=== PATIENT | female | born 1990 | race Caucasian/White ===

== ENCOUNTER 2025-01-07 14:10 | Outpatient (REF) | payer OTHER, SELFPAY ==
--- OUTSIDE RECORDS SUMMARY | 2025-01-07 13:30 | XMS_ITS | Encounter Summary ---
Author Organization [employer] Address [address] [place] [address] [address] [address] Care Team Providers Care Personal Property Assessor Name Role Phone Unavailable Primary Care Provider Unavailabl e Reason for Referral * Imaging (Routine) - Pending Review Specialty Diagnoses / Procedures Referred By Contac t Referred To Contact Radiology Diagnoses Chronic bilateral low back pain with right-sided sciatica Procedures MR Lumbar Spine w/o Contrast Kaye Howard NP [address] [place] [address] Phone: tel: fax: Referral ID Status Reason Start Date Expiration Date V isits Requested Visits Authorized [id number] Pending Review 01/07/2025 01/07/2026 1 1 * Medications - Closed Specialty Diagnoses / Procedures Referred By Jonnieac t Referred To Contact Diagnoses Chronic bilateral low back pain with right-sided sciatica Kaye Howard NP [address] [place] [address] Phone: tel: fax: Referral ID Status Reason Start Date Expiration Date Visits Re quested Visits Authorized [id number] Closed 1 1 Encounter Details Date Type Department Care Team (Late st Contact Info) Description 01/07/2025 1:30 PM EST Office Visit [facility] MEDICINE [address] [place] [address] Kaye Howard NP [address] [place] [address] Healthcare maintenance (Primary Dx); Chronic bilateral low back pain with right-sided sciatica; Epidermoid cyst; Dietary counseling; Exercise counseling Social History Tobacco Use Types Packs/Day Years Used Date Smoking Tobacco: Never Passive Smoke Exposure: Never Smokeless Tobacco: Never Tobacco Cessation:Counseling Given: Not Answered Depression Answer Date Recorded Patient Health Questionnaire-9 Score 0 01/07/2025 Patient Health Questionnaire-9 Score 0 01/07/2025 Last PHQ-9: Questionnaire Data Not on file 1 03/09/2024 Depression Answer Date Recorded Patient Health Questionnaire-2 Score 0 01/07/2025 Comments Unknown Sex and Gender Information Value Date Recorded Sex Assigned at Female 12/30/2024 12:04 PM EST Legal Sex Female 9:28 AM EDT Gender Identity Female 12/30/2024 12:04 PM EST Sexual Orientation Straight 12/30/2024 12 :04 PM EST documented as of this encounter Last Filed Vital Signs Vital Sign Reading Time Taken Comments Blood Pressure 122/80 01/07/2025 1:19 PM EST Pulse 78 01/07/2025 1:19 PM EST Temperature 36.6 C (97.8 F) 01/07/2025 1:19 PM EST Respiratory Rate 16 01/07/2025 1:19 PM EST Oxygen Saturation 99% 01/07/2025 1:19 PM EST Inhaled Oxygen Concentration - - Weight 68.5 kg (151 lb) 01/07/2025 1:19 PM EST Height 165.4 cm (5' 5.11 ) 01/07/2025 1:19 PM ES T Body Mass Index 25.04 01/07/2025 1:19 PM EST documented in this encounter Functional Status * Over the past 2 weeks, how often have you been bothered by any of the following problems? Question Answer Date of Assessment Author Patient Health Questionnaire -2 Score 0 01/07/2025 2:04 PM EST Tasha Myrick MA * Little interest or pleasure in doing things Answer Date of Assessment Author Not at all 01/07/2025 2:04 PM EST Tasha Chacon MA * Feeling down, depressed, or hopeless Answer Date of Assessment Author Not at all 01/07/2025 2:04 PM EST Tasha Chacon MA * Trouble falling or staying asleep, or sleeping too much Answer Date of Assessment Author Not at all 01/07/2025 2:04 PM Tasha Alcala MA * Feeling tired or having little energy Answer Date of Assessment Author Not at all 01/07/2025 2:04 PM Tasha Alcala MA * Poor appetite or overeating Answer Date of Assessment Author Not at all 01/07/2025 2:04 PM Tasha Alcala MA * Feeling bad about yourself - or that you are a failure or have let yourself or your family down Answer Date of Assessment Author Not at all 01/07/2025 2:04 PM Tasha Alcala MA * Trouble concentrating on things, such as reading the newspaper or watching television Answer Date of Assessment Author Not at all 01/07/2025 2:04 PM Tasha Alcala MA * Moving or speaking so slowly that other people could have noticed? Or the opposite - being so fidgety or restless that you have been moving around a lot more than usual. Answer Date of Assessment Author Not at all 01/07/2025 2:04 PM Tasha Alcala MA * Thoughts that you would be better off or hurting yourself in some way Answer Date of Assessment Author Not at all 01/07/2025 2:04 PM Tasha Alcala MA * Patient Health Questionnaire-9 Score Answer Date of Assessment Author 0 01/07/2025 2:04 PM Tasha Alcala MA * Over the last 2 weeks, how often have you been bothered by any of the following problems? Question Answer Date of Assessment Author Feeling nervous, anxious, or on edge 0 01/07/2025 2:04 PM Tasha Nunes MA Not being able to stop or control worrying 0 01/07/2025 2:04 PM Tasha Nunes MA Worrying too much about different things 0 01/07/2025 2:04 PM Tasha Nunes MA Trouble relaxing 0 01/07/2025 2:04 PM EST Elier sharma Tasha Bullock MA Being so restless that it is hard to sit still 0 01/07/2025 2:04 PM EST Tasha Myrick MA Becoming easily annoyed or irritable 0 01/07/2025 2:04 PM EST Tasha Myrick MA Feeling afraid as if somethi ng awful might happen 0 01/07/2025 2:04 PM EST Tasha Myrick MA ZAKIA-7 Total Score 0 01/07/2025 2:04 PM EST Tasha Myrick MA documented as of this encounter Miscellaneous Notes * Assessment & Plan Note - Kaye Howard NP - 01/07/2025 1:30 PM ESTAssociated Problem(s): Epidermoid cyst Epidermoid cyst on the neck, not concerning for malignancy. No indication for intervention unless pain, infection, or significant discomfort develops. No imaging or biopsy recommended at this time. Monitor for changes in pain or signs of infection. Surgical excision only if symptomatic. * Assessment & Plan Note - Kaye Howard NP - 01/07/2025 1:30 PM ESTAssociated Problem(s): Chronic bilateral low back pain with right-sided sciatica - Chronic low back pain with intermittent exacerbations since February 2023 -Did not resolve with physical therapy -Previously prescribed flexeril, now managed with Naproxen -Pain is characterized by exacerbations severe enough to require bed rest. -X-rays performed in March 2023 Mild dextra curvature at the thoracolumbar junction. There is no evidence of fracture. There is preservation of disc space height at each lumbar level. No sacral or sacroiliac abnormality is seen. No osseous lesions are identified and no soft tissue abnormality is detected. No spondylolyses or spondylolisthesis. Orders: lidocaine (Lidoderm) 5 % patch; Apply 1 patch topically Once per day. Remove & discard patch within 12 hours or as directed by . MR Lumbar Spine w/o Contrast; Future documented in this encounter Plan of Treatment Scheduled Orders Name Type Priority Associated Diagnoses Orde r Schedule CBC auto differential Lab Routine Healthcare maintenance Expected: 01/07/2025 (Approximate), Expires: 01/07/2026 Comprehensive Metabolic Panel Lab Routine Healthcare maintenance Expected: 01/07/2025 (Approximate), Expires: 01/07/2026 Renal Function Panel Lab Routine Healthcare maintenance Expected: 01/07/2025 (Approximate), Expires: 01/07/2026 MR Lumbar Spine w/o Contrast Imaging Routine Chronic bilateral low back pain with right-sided sciatica Expected: 01/07/2025, Expires: 01/07/2026 documented as of this encounter Visit Diagnoses Diagnosis Healthcare maintenance- Primary Chronic bilateral low back pain with right-sided sciatica Epidermoid cyst Sebaceous cyst Dietary counseling Dietary surveillance and counseling Exercise counseling documented in this encounter Additional Health Concerns Assessment Noted Time PHQ-9 Depression Total Score: 0 01/08/20 25 2:04 PM EST documented as of this encounter
--- OUTSIDE RECORDS SUMMARY | 2025-01-07 14:35 | XMS_ITS | Encounter Summary ---
Author Organization [employer] Address [address] [place] [address] [address] [place] [address] Care Team Providers Care Ditching Machine Operator Name Role Phone Unavailable Primary Care Provider Unavailabl e Encounter Details Date Type Department Care Team (Latest Contact Info) Description 01/07/2025 Travel Social History Tobacco Use Types Packs/Day Years Used Date Smoking Tobacco: Never Passive Smoke Exposure: Never Smokeless Tobacco: Never Depression Answer Date Recorded Patient Health Questionnaire-9 [...] PM EST documented as of this encounter Functional Status * Over the past 2 weeks, how often have you been bothered by any of the following problems? Question Answer Date of Assessment Author Patient Health Questionnaire -2 Score 0 01/07/2025 2:04 PM Tasha Nunes MA * Little interest or pleasure in doing things Answer Date of Assessment Author Not at all 01/07/2025 2:04 PM Tasha Alcala MA * Feeling down, depressed, or hopeless Answer Date of Assessment Author Not at all 01/07/2025 2:04 PM Tasha Alcala MA * Trouble falling or staying asleep, [...] MA Trouble relaxing 0 01/07/2025 2:04 PM Tasha Zapata MA Being so restless that it is hard to sit still 0 01/07/2025 2:04 PM Tasha Nunes MA Becoming easily annoyed or irritable 0 01/07/2025 2:04 PM Tasha Nunes MA Feeling afraid as if somethi ng awful might happen 0 01/07/2025 2:04 PM Tasha Nunes MA ZAKIA-7 Total Score 0 01/07/2025 2:04 PM Tasha Nunes MA documented as of this encounter Plan of Treatment Not on file documented as of this encounter Visit Diagnoses Not on filedocumented in this encounter Additional Health Concerns Assessment Noted Time PHQ-9 Depression Total Score: 0 01/08/20 25 2:04 PM EST documented as of this encounter
--- OUTSIDE RECORDS SUMMARY | 2025-01-07 14:35 | XMS_ITS | Clinical Summary ---
Author Organization [employer] Address [address] [facility] [address] [place] [address] Care Team Providers Care Cashier Credit Name Role Phone Unavailable Primary Care Provider Unavailabl e Allergies No known active allergies Medications naproxen (Naprosyn) 500 MG tablet Take 500 mg by mouth with breakfast and with evening meal. 4 Active lidocaine (Lidoderm) 5 % patchIndication s:Chronic bilateral low back pain with right-sided sciatica Apply 1 patch topically Once per day. Remove & discard patch within 12 hours or as directed by . 30 patch 2 5 Active Active Problems Problem Noted Date Diagnosed Date Carpal tunnel syndrome 01/07/2025 Epidermoid cyst 01/07/2025 Overview (01/07/2025): Per previous PCP, Timo Campoverde MD 09/2024 : On neck. No evidence of nodule or tumor. Possible tiny cyst, likely fluid-filled. Not cancer. Not a problem. Advised that cysts can resolve spontaneously if not manipulated. No intervention recommended. Assessment & Plan (01/07/2025 2:24 PM EST): Epidermoid cyst on the neck, not concerning for malignancy. No indication for intervention unless pain, infection, or significant discomfort develops. No imaging or biopsy recommended at this time. Monitor for changes in pain or signs of infection. Surgical excision only if symptomatic. Chronic bilateral low back pain with right-sided sciatica 01/07/2025 Assessment & Plan (01/07/2025 2:24 PM EST): - Chronic low back pain with intermittent [...] within 12 hours or as directed by MD. MR Lumbar Spine w/o Contrast; Future Resolved Problems Problem Noted Date Diagnosed Date Resolved Date Low back pain without sciatica 11/28/2023 01/07/2025 Encounters Date Type Department Care Team Description 01/07/2025 1:30 PM EST Office Visit [facility] MEDICINE [address] [place] [address] Kaye Howard NP Healthcare maintenance (Primary Dx); Chronic bilateral low back pain with right-sided sciatica; Epidermoid cyst; Dietary counseling; Exercise counseling 01/07/2025 Travel 01/06/2025 Telephone [facility] MEDICINE [address] [place] [address] Kaye Howard NP Chart Prep 12/31/2024 Travel 12/02/2024 Telephone [facility] ENROLLMENT [address] [place] [address] Payton Gracia MD from Last 3 Months Immunizations Immunization Administration Dates Next Due MMR 09/22/2020 Tdap 03/26/2017 Family History Medical History Relation Name Comments Diabetes Father's Brother Diabetes Maternal Grandmother prediabetes Mother Diabetes Mother's Brother Cancer Mother's Sister Relation Name Status Comments Father's Brother Maternal Grandmother Mother Mother's Brother Mother's Sister Social History Tobacco Use Types Packs/Day Years [...] Orientation Straight 12/30/2024 12 :04 PM EST Last Filed Vital Signs Vital Sign Reading [...] Mass Index 25.04 01/07/2025 1:19 PM EST Plan of Treatment Health Maintenance Due Date Last Done Comments Depression Screening 1989 SDOH Screening 1989 Alcohol/Substance Use Screening 2001 Family Planning (PISQ) 2004 HPV Vaccines (1 - 3-dose series) 2004 Hepatitis C Screening 07/20/2007 Hepatitis B Vaccines (1 of 3 - 19+ 3-dose series) 2008 Pap Smear 2010 Cervical Cancer Screening 07/20/2019 HPV/Cotest 07/20/2019 COVID-19 Vaccine (3 - 2024-2 6 season) 2024 08/30/2020, 08/09/2020 Influenza Vaccine (#1) 2024 , 12/11/2018, 03/26/2017 Disability Screening 12/31/2025 12/31/2024 Tobacco Screening 01/07/2026 01/07/2025 DTaP/Tdap/Td Vaccines (2 - T d or Tdap) 03/26/2027 03/26/2017 Zoster Vaccines (1 of 2) 07/20/2039 RSV Patients and Patients Aged 60 years or older (1 - 1-dose 75+ series) 2064 HIV Screening Completed 06/27/2023 HIB Vaccines Aged Out No longer eligi ble based on patient's age to complete this topic Hepatitis A Vaccines Aged Out No long er eligible based on patient's age to complete this topic IPV Vaccines Aged Out No longer eligi ble based on patient's age to complete this topic Meningococcal B Vaccine Aged Out No l onger eligible based on patient's age to complete this topic Meningococcal Vaccine Aged Out No ang dionicio eligible based on patient's age to complete this topic Pneumococcal Vaccine: Pediatrics (0 to 5 Years) and At-Risk Patients (6 to 49) Years Aged Out No longer eligible b ased on patient's age to complete this topic RSV under 20 months Aged Out No longe r eligible based on patient's age to complete this topic Rotavirus Vaccines Aged Out No longer eligible based on patient's age to complete [place] [id number] [facility]
--- OUTSIDE RECORDS SUMMARY | 2025-01-07 14:35 | XMS_ITS | Encounter Summary ---
Author Organization [employer] Address [address] [place] [id number] Care Team Providers Care Leadlighter Name Role Phone Unavailable Primary Care Provider Unavailabl e Reason for Visit * Reason Onset Date Comments Chart Prep 01/06/2025 Encounter Details Date Type Department Care Team ([facility] st Contact Info) Description 01/06/2025 Telephone [facility] MEDICINE [address] [place] [address] Kaye Howard, [place] [address] [place] [address] Chart Prep Social History Tobacco Use Types Packs/Day Years Used Date Smoking Tobacco: Never Assessed Depression Answer Date Recorded Patient Health Questionnaire-9 [...] PM EST documented as of this encounter Miscellaneous Notes * Telephone Encounter - Tasha Bullock MA - 01/06/2025 2:36 PM EST Chart Prep Labs: not applicable Images: not applicable Referrals: not applicable Vaccines due: Covid, Flu, Hep B, and HPV Screenings: LMP and Hep C, Cervical cancer. Overdue care gaps: SBIRT, SDOH, PHQ-9, ZAKIA-7, Oral health screening, and Tobacco documented in this encounter Plan of Treatment Not on file documented as of this encounter Visit Diagnoses Not on filedocumented in this encounter
[2025-01-07 17:17] LABS: MANUAL DIFF FLAG NO
[2025-01-07 17:24] LABS: Hematocrit 37.8 % (37.0-47.0); Hemoglobin 12.6 g/dl (12.0-16.0); Imm Gran Abs Auto 0.02 X10*3/uL (0.00-0.03); Imm Gran Pct Auto 0.3 % (0.0-0.4); Lymphocytes Absolute Auto 2.6 X10*3/uL (1.2-4.9); Mean Corpuscular HGB Conc 33.3 g/dl (31.0-35.0); Mean Corpuscular Hemoglobin 30.4 pg (27.0-33.0); Mean Corpuscular Volume 91.3 fL (80.0-98.0); NRBC Abs Auto 0.000 X10*3/uL (0.0-0.012); NRBC Pct Auto 0.0 /100WBC (0.0-0.2); Platelet Count 168 X10*3/uL (160-400); Red Blood Count 4.14 X10*6/uL (4.20-5.50); White Blood Count 7.5 X10*3/uL (4.8-10.8)
[2025-01-07 17:49] LABS: Alanine Aminotransferase 19 U/L (0-31); Albumin Level 4.9 g/dL (3.5-5.0); Alkaline Phosphatase 46 U/L (39-117); Anion Gap 10 (12-20); Aspartate Amino Transferase 25 U/L (5-31); Blood Urea Nitrogen 14 mg/dL (9-16); Calcium 9.5 mg/dL (8.4-10.2); Carbon Dioxide 25 mmol/L (22-29); Chloride 109 mmol/L (96-108); Estimated Glomerular Filt Rate > 60; Potassium 4.0 mmol/L (3.3-5.1); Sodium 140 mmol/L (135-145); Total Protein 7.7 g/dL (6.5-8.0)
== END 2025-01-07 14:11 | disposition home or self-care (01) ==
LOC: HO.HHCL 14:10
DX: Z00.00 Encounter for general adult medical examination without abnormal findings (principal)
CPT/HCPCS: 36415; 80053; 80069; 84100; 85025